=== PATIENT | male | born 1945 | race Caucasian/White ===

== ENCOUNTER 2018-04-25 14:53 | Emergency (ER) | payer OTHER ==
[~2018-04-25] VITALS: Ht 177.8 cm; Wt 81.7 kg
[~2018-04-25 14:53] MED LIST: COZAAR100 MG PO; FLOMAX0.4 MG PO; LIPITOR10 MG PO; NIFEDICAL XL30 MG PO; PLAVIX 75 MG TA75 M1 PO; PREVACID30 MG PO
[2018-04-25] MEDS ORDERED: PACERONE 200 M200 M1 PO (15:19)
[2018-04-25] MEDS ORDERED: CARVEDILOL12.5 MG PO (15:19)
[2018-04-25 16:07] LABS: ABSOLUTE NEUTROPHILS 10.9 thou/uL (1.4-8.2); BASOPHILS 1.5 % (0.0-2.0); HEMATOCRIT 41.6 % (42.0-52.0); HEMOGLOBIN 14.6 gm/dL (14.0-18.0); LYMPHOCYTES 1.8 % (24.0-44.0); MCH 34.5 pg (26.0-34.0); MCHC 35.2 g/dL (28.0-37.0); MONOCYTES 3.7 % (1.0-8.0); PLATELET COUNT 186 thou/uL (150-400); RBC 4.25 mil/uL (4.50-6.00); RDW 13.1 % (10.5-14.5); WBC 11.7 thou/uL (4.0-11.0)
[2018-04-25 16:46] LABS: URINE BILIRUBIN NEGATIVE (Negative); URINE BLOOD TRACE (Negative); URINE CLARITY CLEAR; URINE COLOR YELLOW; URINE GLUCOSE-RANDOM* NEGATIVE (Negative); URINE KETONES NEGATIVE (Negative); URINE LEUKOCYTES-REFLEX NEGATIVE (Negative); URINE NITRITE-REFLEX NEGATIVE (Negative); URINE PROTEIN (DIPSTICK) NEGATIVE (Negative); URINE SPECIFIC GRAVITY 1.015 (1.005-1.035); URINE UROBILINOGEN 0.2 E.U./dl (0.2-1.0)
[2018-04-25 16:48] LABS: CALCIUM 9.2 mg/dL (8.5-10.1); CREATININE 1.2 mg/dL (0.7-1.3); POTASSIUM 3.9 mmol/L (3.5-5.1)
[2018-04-25 16:55] LABS: ALBUMIN 3.7 g/dL (3.4-5.0); TOTAL BILIRUBIN 1.2 mg/dL (<0.1-1.0); TOTAL PROTEIN 7.6 g/dL (6.4-8.2)
[2018-04-25 17:39] VITALS: BP 108/57
[2018-04-25] MEDS ORDERED: AZITHROMYCIN 2250 MG PO (17:40)
== END 2018-04-25 17:43 ==
LOC: ER 14:53
PROVIDERS: Emergency Medicine
DX: J06.9 Acute upper respiratory infection, unspecified (principal); F17.210 Nicotine dependence, cigarettes, uncomplicated; I10 Essential (primary) hypertension; E78.00 Pure hypercholesterolemia, unspecified; Z86.73 Personal history of transient ischemic attack (TIA), and cerebral infarction without residual deficits; Z88.5 Allergy status to narcotic agent

== ENCOUNTER → 2019-12-10 | Outpatient (CLI) | payer OTHER ==
[~2019-12-10] MED LIST changes: +AZITHROMYCIN 2250 MG PO; +CARVEDILOL12.5 MG PO; +IMDUR 30 MG TAB30 M1 PO; +NORVASC 2.5 MG2.5 M1 PO; +PACERONE 200 M200 M1 PO
== END ==
LOC: SJCVCIMAG 11:15
PROVIDERS: ATTEND Internal Medicine Cardiovascular Disease
DX: R07.9 Chest pain, unspecified (principal); Z86.73 Personal history of transient ischemic attack (TIA), and cerebral infarction without residual deficits

== ENCOUNTER → 2019-12-11 | Outpatient (CLI) | payer OTHER | LOC: SJCVCIMAG 08:14 | PROVIDERS: ATTEND Internal Medicine Cardiovascular Disease | DX: I10 Essential (primary) hypertension (principal); R06.02 Shortness of breath; R53.83 Other fatigue; Z86.73 Personal history of transient ischemic attack (TIA), and cerebral infarction without residual deficits ==

== ENCOUNTER → 2019-12-16 | Outpatient (CLI) | payer OTHER ==
[~2019-12-16] VITALS: Ht 177.8 cm; Wt 79.4 kg
[2019-12-16 07:15] VITALS: BP 120/58
--- NOTE | 2019-12-16 09:16 | EKG ---
[facility] [place] [address] ELECTROCARDIOGRAM REPORT Name: [id number]: 12/16/19 Attend Phys: Mitch Kinney MD Discharge: Date of : 47 Report #: [id number] THIS REPORT FOR: cc: Brenden Pendleton MD, Stany A. MD Lundgren,Wilmer Castaneda MD [facility] THIS REPORT FOR: //name// [facility] Test Date: 2019-12-16 Test Time: 07:17:45 Pat Name: CASEY JENKINS Department: Room: Gender: Vocal Teacher: [facility] : 1945 Requested By: Mitch Kinney Order Number: [id number] MD: Wilmer Alas Measurements Intervals [place] Rate: 68 P: 43 NV: 171 QRS: 18 QRSD: 100 T: 32 QT: 389 QTc: 414 Interpretive Statements Sinus rhythm Normal tracing Compared to ECG 08/22/2015 15:55:52 Poor R-wave progression no longer present Electronically Signed On 12-16-2019 9:16:37 CDT by Wilmer Alas [email or web address] <ELECTRONICALLY SIGNED> By: Wilmer Alas MD, [facility] 12/16/19 0916 6 6 Wilmer Alas MD, [facility] /EPI
--- NOTE | 2019-12-16 15:40 | CATHLAB ---
[facility] [place] [address] INVASIVE PROCEDURE REPORT Name: CASEY JENKINS Room #: REG SHADI BaileyMarti#: [id number] Admission: 12/16/19 Attend Phys: Mitch Kinney MD Discharge: Date of : 47 Report #: [id number] THIS REPORT FOR: cc: Brenden Pendleton MD, Stany A. MD Park, Jin S. MD ~ APPROVED REPORT Study performed: 12/16/2019 07:20:30 Patient Details Patient Status: Out-Patient Room #: The patient is a 74 year-old male Event Personnel Mitch Kinney Web Services Professional, Christina Ayala RN RN, Gabby Ambriz RTR, Chad Rangel Roberta Monitor Procedures Performed Art Access - R femoral artery* Left Heart Cath w/or w/o Coronaries [id number] [facility] [id number] Initial Mod Sed Same Phys/QHP Gr [id number] 60251 Mod Sed Same Phys/QHP Ea [id number] Indication Dyspnea, Positive stress test, Chest pain Risk Factors Cerebrovascular Disease, Hypercholesterolemia, Hypertension, Tobacco History () Previous Procedures/Diagnoses Previous CVA Procedure Narrative The Right Groin^ was infiltrated with 1% Lidocaine subcutaneous anesthesia. A PINNACLE 4FR Sheath #[id number] sheath was inserted into the RFA 4F^. Coronary angiography was performed using coronary diagnostic catheters. The right coronary system was accessed and visualized with a JR4 catheter. The left coronary system was accessed and visualized with a JL4 catheter. Left ventricular/Aortic Valve gradient assessed via catheter pullback. Hemostasis was obtained with manual pressure following sheath removal without any complications. The patient tolerated the procedure well and there were no complications associated with the procedure. There was no [facility] [address] [place] [address] INVASIVE PROCEDURE REPORT Name: CASEY JENKINS Room #: REG [facility]#: [id number] Admission: 12/16/19 Attend Phys: Mitch Kinney MD Discharge: Date of : 47 Report #: [id number]. Intraoperative Conscious Sedation Sedation start time: 08:19 Case end Time: 09:00 Fentanyl 100 mcg Versed 1 mg Fluoro Time: 1.9 minutes Dose: DAP 4611.10 cGycm2 638 mGy Contrast Type and Amount: Omnipaque 35 ml Coronary Angiography The patient's coronary anatomy is co- dominant. Diagnostic Cath Left Main The left main artery is a large caliber vessel, with no flow-limiting lesions. LAD The LAD is a moderate-sized caliber vessel, traverses the anterior wall and wraps around the apex. There is mild disease in the midsegment, less than 20%. Diagonal 1 This is a small caliber vessel, with no flow-limiting lesions. Diagonal 2 This is a small caliber vessel, with no flow-limiting lesions. Circumflex The left circumflex artery is a codominant vessel, with mild disease in the proximal segment, 20%. OM1 This is a small to moderate-sized caliber vessel with a severe stenosis in the proximal segment. Recommend medical therapy. OM2 This is a moderate-sized caliber vessel, with no flow-limiting lesions. OM3 This is a moderate-sized caliber vessel, with no flow-limiting lesions. Right Coronary The RCA is a moderate-sized caliber vessel, with mild disease proximally. R PDA This is a moderate-sized caliber vessel, with no flow-limiting lesions. Left Ventriculography Left Ventriculography was not performed. Ejection Fraction was 60-65% based off patient's Nuclear Cardiac Stress Test. An LVEDP was measured and there is no gradient across the outflow tract. Hemodynamics The aortic pressure is 160/64 mmHg with a mean of 103 mmHg. [facility] [address] [place] [address] INVASIVE PROCEDURE REPORT Name: CASEY JENKINS Room #: REG CL [facility]#: [id number] Admission: 12/16/19 Attend Phys: Mitch Kinney MD Discharge: Date of : 47 Report #: [id number] ventricular pressure is 147/13 mmHg with a mean of mmHg. The left ventricular end diastolic pressure is 26 mmHg. Conclusion 1. 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 2. Codominant system. 3. There is a severe stenosis in a small to moderate-sized caliber OM1 vessel. Recommend medical therapy. Consider staged angioplasty if the patient remains symptomatic. 4. Normal LV systolic function. 5. Recommend guideline directed medical therapy. <ELECTRONICALLY SIGNED> By: Mitch Kinney MD 12/16/19 1540 1540 1540 Mitch Kinney MD /INF
== END | disposition home or self-care (01) ==
LOC: CATH 06:30
PROVIDERS: ATTEND Internal Medicine Cardiovascular Disease
DX: R07.9 Chest pain, unspecified (principal); I25.10 Atherosclerotic heart disease of native coronary artery without angina pectoris; R94.39 Abnormal result of other cardiovascular function study; R06.00 Dyspnea, unspecified; I10 Essential (primary) hypertension; E78.00 Pure hypercholesterolemia, unspecified; E78.5 Hyperlipidemia, unspecified; K21.9 Gastro-esophageal reflux disease without esophagitis; F17.210 Nicotine dependence, cigarettes, uncomplicated; Z98.890 Other specified postprocedural states; Z79.899 Other long term (current) drug therapy; Z86.73 Personal history of transient ischemic attack (TIA), and cerebral infarction without residual deficits; Z88.8 Allergy status to other drugs, medicaments and biological substances

== ENCOUNTER → 2020-01-08 | Outpatient (CLI) | payer OTHER | LOC: SJCVCIMAG 12-30 12:13 | PROVIDERS: ATTEND Internal Medicine Cardiovascular Disease | DX: I70.201 Unspecified atherosclerosis of native arteries of extremities, right leg (principal); M79.605 Pain in left leg ==